=== PATIENT | male | born 1955 | race Two or more races ===

== ENCOUNTER 2018-03-30 09:52 | Emergency (ER) | payer OTHER, BC ==
[2018-03-30] MEDS ORDERED: 0.9 % SODIUM CHLORIDE 1,000 ML BAG IV ONE ×2 (10:11→11:45)
--- NOTE | 2018-03-30 10:24 | Emergency Department Record ---
History of Present Illness - General Chief Complaint: Back Pain/Injury Stated Complaint: BACK PAIN, DIARRHEA, DIZZINESS, KHAN Time Seen by Provider: 03/30/18 10:07 Source: Patient, Family Mode of Arrival: Ambulatory Limitations: No limitations - History of Present Illness Initial Comments: The patient is here due to a 3-4 day hx of cough, body aches, ST, runny nose, mild KHAN, and loose stools. He denies any fever, AP, vomiting, or nausea. The patient is having dark stools but did start Pepto Bismal prior to the onset. He feels he may have the flu and is dehydrated. MD Complaint: Other Onset/Timin -: Days(s) Similar Symptoms Previously: Yes Place: Home Radiation: None Severity: Moderate Severity scale (1-10): 6 Quality: Aching, Burning, Dull Consistency: Constant, Intermittent Improves With: None Worsens With: None Associated Symptoms: Denies other symptoms - Related Data Home Medications Medication Instructions Recorded Confirmed Last Taken Lisinopril 10 mg PO DAILY 03/30/18 03/30/18 1 Day Ago ~03/29/18 Metoprolol Succinate [Toprol Xl] 100 mg PO DAILY 03/30/18 03/30/18 1 Day Ago ~03/29/18 Simvastatin [Zocor] 40 mg PO DAILY 03/30/18 03/30/18 1 Day Ago ~03/29/18 Allergies Allergy/AdvReac Type Severity Reaction Status Date / Time No Known Drug Allergies Allergy Verified 03/30/18 10:07 Travel Screening - Travel/Exposure Within Last 30 Days Have you traveled within the last 30 days?: No - Travel/Exposure Within Last Year Have you traveled outside the [place] in the last year?: No - Additonal Travel Details Have you been exposed to anyone with a communicable illness?: No - Travel Symptoms Symptom Screening: None Review of Systems Constitutional: Reports: Malaise. Denies: Chills, Fever Eyes: Denies: Eye discharge ENT: Reports: Congestion Respiratory: Reports: Cough. Denies: Dyspnea Cardiovascular: Denies: Arrhythmia Endocrine: Reports: Fatigue Gastrointestinal: Reports: Diarrhea. Denies: Nausea, Vomiting Genitourinary: Denies: Hematuria Musculoskeletal: Denies: Arthralgia Skin: Denies: Bruising Past Medical History - SOCIAL HISTORY Smoking Status: Light tobacco smoker (<10/day) Alcohol Use: Occasional Drug Use: Rare Drug Use Detail:: Marijuana - RESPIRATORY Hx Respiratory Disorders: Yes Hx Pneumonia: Yes (6 years ago) Comment:: was treated for active TB 1974 - CARDIOVASCULAR Hx Cardio Disorders: Yes Hx Hypertension: Yes Comment:: high cholesterol - NEURO Hx Neuro Disorders: No - GI Hx GI Disorders: Yes Hx Reflux: Yes (takes pepcid prn) - Hx Genitourinary Disorders: Yes Hx Kidney Stones: Yes ( no surgery) - ENDOCRINE Hx Endocrine Disorders: No - MUSCULOSKELETAL Hx Musculoskeletal Disorders: Yes Hx Arthritis: Yes (chronic pain in ankles) - PSYCH Hx Psych Problems: No - HEMATOLOGY/ONCOLOGY Hx Hematology/Oncology Disorders: No Family Medical History Any Significant Family History?: Yes Hx Cancer: Father, Mother *Cancer Comment: father-prostate, mother-lung Hx HTN: Father, Mother, Children Physical Exam - General General Appearance: Alert, Oriented x3, Cooperative, No acute distress - Head Head exam: Atraumatic, Normocephalic - Eye Eye exam: Normal appearance, PERRL. negative: Conjunctival injection - ENT ENT exam: Normal exam, Mucous membranes moist, Normal external ear exam, Normal orophraynx, TM's normal bilaterally Throat exam: Normal inspection. negative: Tonsillar erythema, Tonsillar exudate - Neck Neck exam: Normal inspection, Full ROM. negative: Tenderness - Respiratory Respiratory exam: Normal lung sounds bilaterally. negative: Respiratory distress - Cardiovascular Cardiovascular Exam: Regular rate, Normal rhythm, Normal heart sounds - GI/Abdominal GI/Abdominal exam: Soft, Normal bowel sounds. negative: Guarding, Organomegaly , Rebound, Rigid, Tenderness - Extremities Extremities exam: Normal inspection, Full ROM, Normal capillary refill. negative: Tenderness - Back Back exam: Reports: Normal inspection, Full ROM. Denies: Muscle spasm, Paraspinal tenderness, Rash noted, Tenderness, Vertebral tenderness - Neurological Neurological exam: Alert. negative: Motor sensory deficit - Psychiatric Psychiatric exam: negative: Anxious Course Vital Signs 03/30/18 10:03 Temperature 97.8 F Pulse Rate [ 122 H Pulse Ox Probe] Respiratory 16 Rate Blood Pressure 122/106 [Left Arm] Pulse Ox 97 - Reevaluation(s) Reevaluation #1: The patient is doing a lot better at this time. He has had no diarrhea here in the ER and denies any AP, back pain or dysuria. 03/30/18 11:15 Reevaluation #2: The patient is doing a lot better at this time. He denies any AP, nausea, vomiting, dysuria or back pain. I explained to him that his lab tests are improving and he feels ready for home. 03/30/18 12:28 Medical Decision Making - Data Complexity MDM Data: Labs Ordered and/or Reviewed, X-Ray Ordered and/or Reviewed - Lab Data Result diagrams: 03/30/18 10:15 03/30/18 10:15 - Radiology Data Radiology results: Report reviewed (CXR: Neg) Disposition Disposition: Discharge Clinical Impression: Diarrhea Qualifiers: Diarrhea type: unspecified type Qualified Code(s): R19.7 - Diarrhea, unspecified Disposition: Home, Self-Care Condition: (2) Stable Instructions: Acute Diarrhea (ED) Additional Instructions: Please drink plenty of fluids and eat a very bland diet. Use Tylenol for pain and please see your family doctor if not better in 2 days. Return to the ER for any worsening symptoms. Forms: Patient Portal Access Time of Disposition: 12:30 Quality - Quality Measures Quality Measures: N/A - Blood Pressure Screening View Details: Yes Does Patient Have Any of the Following: Active Dx of HTN Blood Pressure Classification: Pre-Hypertensive BP Reading Systolic Measurement: 150 Diastolic Measurement: 88 Screening for High Blood Pressure: Patient Exclusion, Hx of HTN [[id number]]
[2018-03-30 10:33] LABS: BASO % 0.5 % (0-6); EOS % 0.9 % (0-6); GRAN % 60.4 % (47-80); HEMATOCRIT 48.8 % (42.0-52.0); HEMOGLOBIN 16.9 gm/dl (14.0-18.0); LYMPH % 27.3 % (16-45); MEAN CELL VOLUME 86.2 fl (81-97); MEAN CORPUSCULAR HEMOGLOBIN 29.9 pg (27-33); MEAN CORPUSCULAR HGB CONC 34.6 g/dl (32-36); MEAN PLATELET VOLUME 10.4 fl (7.4-10.4); MONO % 10.9 % (0-9); PLATELET COUNT 166 K/uL (130-400); RED BLOOD COUNT 5.66 M/uL (4.40-5.70); RED CELL DISTRIBUTION WIDTH 14.1 % (11.5-14.5); WHITE BLOOD COUNT W/O DIFF 5.8 K/uL (4.2-12.2)
[2018-03-30 10:35] LABS: URINE BILIRUBIN SMALL (NEGATIVE); URINE BLOOD TRACE-I (NEGATIVE); URINE COLOR YELLOW; URINE GLUCOSE (UA) NEGATIVE (NEGATIVE); URINE KETONE 15 mg/dL (NEGATIVE); URINE LEUKOCYTE ESTERASE NEGATIVE (NEGATIVE); URINE NITRITE NEGATIVE (NEGATIVE); URINE PROTEIN TRACE (NEGATIVE); URINE UROBILINOGEN 0.2 E.U./dL (0.20 - 1.00)
[2018-03-30 10:43] LABS: BLOOD UREA NITROGEN 19 mg/dL (8-23); CREATININE 1.1 mg/dL (0.7-1.2); EST GLOMERULAR FILTRATION RATE > 60 mL/min
[2018-03-30 10:44] LABS: TOTAL PROTEIN 7.9 g/dL (6.6-8.7)
[2018-03-30 10:46] LABS: GLUCOSE,RANDOM 127 mg/dL (74-109); URINE APPEARANCE SL CLOUDY
[2018-03-30 10:48] LABS: ALBUMIN 3.8 g/dL (4.0-5.0); ALT/SGPT 22 U/L (<41); AST/SGOT 29 U/L (10.0-50.0)
[2018-03-30 10:49] LABS: ALKALINE PHOSPHATASE 126 U/L (55-149); INFLUENZA A NEGATIVE (NEGATIVE); INFLUENZA B NEGATIVE (NEGATIVE); LIPASE 26 U/L (13-60); URINE WBC 0 - 2 (0-2/hpf)
[2018-03-30 10:50] LABS: URINE BACTERIA 2+; URINE MUCUS HEAVY
[2018-03-30 10:54] LABS: BILIRUBIN,DIRECT < 0.2 mg/dL (0-0.3)
[2018-03-30] MEDS ORDERED: ACETAMINOPHEN 325 MG TAB PO ONE (11:09)
[2018-03-30 11:55] LABS: URINE APPEARANCE CLEAR; URINE BILIRUBIN SMALL (NEGATIVE); URINE BLOOD TRACE-I (NEGATIVE); URINE COLOR YELLOW; URINE GLUCOSE (UA) NEGATIVE (NEGATIVE); URINE KETONE 15 mg/dL (NEGATIVE); URINE LEUKOCYTE ESTERASE NEGATIVE (NEGATIVE); URINE NITRITE NEGATIVE (NEGATIVE); URINE PROTEIN TRACE (NEGATIVE); URINE UROBILINOGEN 0.2 E.U./dL (0.20 - 1.00)
[2018-03-30 12:11] LABS: URINE EPITHELIAL CELLS 0 - 2 (FEW); URINE RBC 0 - 2 (NONE SEEN); URINE WBC 0 - 2 (0-2/hpf)
[2018-03-30 12:12] LABS: URINE BACTERIA FEW; URINE FINE GRANULAR CAST 0 - 2 /lpf
[2018-03-30 12:13] LABS: URINE MUCUS HEAVY
--- NOTE | 2018-03-31 07:02 | RADIOLOGY REPORT ---
EXAM: CHEST, TWO VIEWS HISTORY: BACK PAIN. TECHNIQUE: Frontal and lateral views of the chest were performed. Comparison: 08/19/10. FINDINGS: The heart size is normal. No pulmonary vascular congestion. No infiltrate or pleural effusion. The osseous structures are normal. IMPRESSION: NEGATIVE CHEST EXAMINATION. JOB NUMBER: [id number] [facility]
== END 2018-03-30 12:51 | disposition home or self-care (01) ==
LOC: ER 09:52
DX: R19.7 Diarrhea, unspecified (principal); R51 Headache; R42 Dizziness and giddiness; I10 Essential (primary) hypertension; F17.210 Nicotine dependence, cigarettes, uncomplicated
CPT/HCPCS: 71046; 80048; 80076; 81001; 83690; 85025; 87400; 96360; 99284; J7030

== ENCOUNTER 2018-07-09 10:33 | Day surgery (SDC) | payer BC ==
[2018-07-09] MEDS ORDERED: PROPOFOL 10 MG/ML VIAL IV ONE (10:34)
[2018-07-09] MEDS ORDERED: LIDOCAINE 2% MDV (20MG/ML) 20ML VIAL IV ONE (10:34)
--- NOTE | 2018-07-10 08:31 | Operative Note ---
DATE OF SURGERY: 07/09/2018 OPERATION: COLONOSCOPY with cold snare polypectomy. PREOPERATIVE DIAGNOSIS: Personal history of colon polyps. POSTOPERATIVE DIAGNOSIS: Transverse colon polyp. ESTIMATED BLOOD LOSS: Minimum. SPECIMENS: Transverse colon polyp. PREPARATION QUALITY: Good to excellent. COMPLICATIONS: None apparent. PROCEDURE: After informed consent was obtained from the patient, he was placed in the left lateral decubitus position in the endoscopy suite, sedated and monitored by the department of anesthesia. Digital rectal examination was unremarkable. A well-lubricated [id number] colonoscope was inserted into the rectum and advanced to the cecum. The cecum, cecal bulb, ileocecal valve, appendiceal orifice, and ascending colon were unremarkable. In the transverse colon there was a 5 mm polyp removed with a cold snare and retrieved. Minimal bleeding was noted. The remainder of the transverse colon, descending colon, sigmoid colon, and rectum were unremarkable. J-turn views of the anorectum were unremarkable. The endoscope was straightened, the rectal ampulla deflated, and the endoscope was removed. RECOMMENDATIONS: The patient should resume his medications and diet. He was encouraged to stop smoking. He will require repeat exam in 5 years. As always, thank you for allowing me to participate in the healthcare of your patients. CC: Sharon GOLDSMITH
== END 2018-07-09 12:20 | disposition home or self-care (01) ==
LOC: HOP 10:33
PROVIDERS: ATTEND Internal Medicine Gastroenterology
DX: Z12.11 Encounter for screening for malignant neoplasm of colon (principal); Z86.010 Personal history of colon polyps; D12.3 Benign neoplasm of transverse colon; I10 Essential (primary) hypertension; E78.00 Pure hypercholesterolemia, unspecified